=== PATIENT | male | born 1960 ===

== ENCOUNTER 2022-03-31 04:17 | Day surgery (SDC) | payer BC, OTHER ==
[2022-03-27 14:46] VITALS: BMI 25.8
[2022-03-31 06:42] VITALS: RESP 20
[2022-03-31] MEDS ORDERED: LIDOCAINE HCL 2% (20ML MULTI-DOSE VIAL) ONE (07:17)
[2022-03-31] MEDS ORDERED: BUPIVACAINE HCL/PF 0.5% (5MG/ML) 10 ML VIAL ONE (07:18)
[2022-03-31] MEDS ORDERED: DEXAMETHASONE SOD PHOSPHATE 4 MG/1 ML VIAL ONE (07:18)
[2022-03-31] MEDS ORDERED: ACETAMINOPHEN INJECTION 100 ML IVPB ONE (07:38)
[2022-03-31] MEDS ORDERED: MIDAZOLAM HCL 2 MG/2 ML SINGLE DOSE VIAL ONE (07:41)
[2022-03-31] MEDS ORDERED: PROPOFOL 40 ML ONE (07:46)
[2022-03-31] MEDS ORDERED: KETAMINE HCL 200 MG/20 ML VIAL ONE (07:46)
[2022-03-31] MEDS ORDERED: ceFAZolin SODIUM 1 GM VIAL IVPB ONE (07:54)
[2022-03-31] MEDS ORDERED: LIDOCAINE HCL 2% (50ML VIAL) NR ONE (08:02)
[2022-03-31] MEDS ORDERED: BUPIVACAINE HCL/PF 0.5% (5MG/ML) 10 ML VIAL IJ ONE (08:04)
[2022-03-31] MEDS ORDERED: DEXAMETHASONE SOD PHOSPHATE 4 MG/1 ML VIAL IVPUSH ONE (08:27)
[2022-03-31 11:47] VITALS: BP 112/65; PULSE 65; TEMP 97.2
== END 2022-03-31 10:30 | disposition home or self-care (01) ==
LOC: JASU-SURG 04:17
PROVIDERS: ATTEND Podiatrist
PROC: 0SNP0ZZ Release Right Toe Phalangeal Joint, Open Approach (ICD-10-PCS; 2022-03-31)
PROC: 0SRP0JZ Replacement of Right Toe Phalangeal Joint with Synthetic Substitute, Open Approach (ICD-10-PCS; principal; 2022-03-31 07:30)
DX: M20.41 Other hammer toe(s) (acquired), right foot (principal); E11.9 Type 2 diabetes mellitus without complications; Z79.84 Long term (current) use of oral hypoglycemic drugs
CPT/HCPCS: 82962; 88304-TC; 88311-TC